=== PATIENT | female | born 1975 | race Caucasian/White ===

== ENCOUNTER 2019-08-10 13:31 | Outpatient (CLI) | payer BC, SELFPAY ==
--- NOTE | ~2019-08-10 | MR_ITS ---
EXAMINATION: MR abdomen wo/w con DATE: 08/10/2019 14:39 INDICATION: Liver mass. TECHNIQUE: Magnetic resonance imaging (MRI) of the abdomen was performed without and with 11 mL Multi Jenise intravenous contrast. Sequences included coronal T2-weighted FS FSE, coronal and axial FS FIEST A, axial T2-weighted FSE, coronal LAVA-flex, axial STIR FSE, axial DWI, axial dual-echo T1-weighted F SPGR, and axial LAVA. Postcontrast sequences included coronal LAVA-flex and a time course of axial LA VA. COMPARISON: CT abdomen and pelvis 06/25/2019 FINDINGS: There is a 5 mm cyst in the liver. In the left hepatic lobe, there is a 1.8 cm mass with interrupted peripheral puddling of contrast, consistent with a hemangioma. There is a 9 mm hyperenhancing mass in right hepatic lobe. There is a 6 mm hyperenhancing mass in right hepatic lobe. The gallbladder, sple en, pancreas, adrenal glands are normal. There are cysts in the kidneys measuring up to 4 mm. There a re no dilated loops of bowel. There are no pathologically enlarged lymph nodes. There is no free intr aperitoneal fluid. IMPRESSION: 1. 1.8 cm hemangioma in left hepatic lobe correlating with the CT finding. 2. 9 mm and 6 mm hyperenhancing liver masses. In the absence of known malignancy or chronic liver dis ease, these findings are likely hemangiomas or focal nodular hyperplasia. Reviewed, dictated and finalized at location A. [employer] IMPRESSION: 1. 1.8 cm hemangioma in left hepatic lobe correlating with the CT finding. 2. 9 mm and 6 mm hyperenhancing liver masses. In the absence of known malignanc y or chronic liver disease, these findings are likely hemangiomas or focal nodu lar hyperplasia.
[2019-08-10 14:10] LABS: Blood Urea Nitrogen 13 mg/dL (8-26); Estimated Glomerular Filt Rate > 60
== END 2019-08-10 13:32 | disposition home or self-care (01) ==
LOC: ANHIMG 13:42
PROVIDERS: PCP Family Medicine; Visit Provider Physician Assistant
DX: K76.9 Liver disease, unspecified (principal)
CPT/HCPCS: 74183; A9577

== ENCOUNTER 2024-03-23 11:53 | Emergency (ER) | payer BC, SELFPAY ==
[2024-03-23 11:55] VITALS: BP 135/73; PULSE 88; RESP 16; TEMP 36.4; O2SAT 100
[2024-03-23] MEDS: SODIUM CHLORIDE 0.9% IV 1,000 ML 999 ML IV CONT ×2 (13:00→14:26)
[2024-03-23] MEDS: PANTOPRAZOLE SODIUM IV 40 MG VIAL IV PUSH (13:00)
[2024-03-23] MEDS: ONDANSETRON INJ 4 MG/2 ML VIAL IV PUSH (13:00)
[2024-03-23 13:34] LABS: Basophils Percent Auto 0.2 % (0.2-1.2); Hematocrit 47.3 % (37.0-47.0); Hemoglobin 15.7 g/dL (12.0-15.0); Immature Granulocyte Absolute 0.04 K/mm3 (0.00-0.031); Immature Granulocyte Percent A 0.3 % (0-0.5); Lymphocytes Absolute Auto 0.45 K/mm3 (0.9-3.2); Lymphocytes Percent Auto 3.3 % (18.3-44.2); Mean Corpuscular HGB Conc 33.2 g/dl (32-36); Mean Corpuscular Hemoglobin 30.8 pg (26-34); Mean Corpuscular Volume 92.7 fl (80-100); Mean Platelet Volume 11.8 fl (7.4-10.4); Monocytes Absolute Auto 0.7 K/mm3 (0.1-0.6); Monocytes Percent Auto 4.9 % (2.6-8.5); Neutrophils Absolute Auto 12.6 K/mm3 (1.3-6.7); Neutrophils Percent Auto 91.3 % (45.5-73.1); Platelet Count Result 255 k/mm3 (150-375); Red Cell Distribution Width 12.4 % (11.5-14.5); White Blood Count 13.8 K/mm3 (4.5-10.0)
[2024-03-23 13:45] LABS: Lactic Acid Reflex 2.5 mmol/L (0.7-2.0)
[2024-03-23 13:47] LABS: Alanine Aminotransferase 28 U/L (6-35); Alkaline Phosphatase 51 U/L (38-126); Anion Gap 13 mmol/L (4-12); Aspartate Amino Transferase 34 U/L (14-36); Bilirubin,Total 0.7 mg/dL (0.2-1.3); Blood Urea Nitrogen 12 mg/dL (7-17); Calcium 10.7 mg/dL (8.4-10.2); Carbon Dioxide 29 mmol/L (22-30); Chloride 98 mmol/L (98-107); Estimated CRCL calculation 66 ml/min; Estimated Glomerular Filt Rate > 60; Glucose 141 mg/dL (65-110); Lipase 111 U/L (23-300); Potassium 3.4 mmol/L (3.4-5.0); Sodium 140 mmol/L (137-145)
--- NOTE | 2024-03-23 14:00 | ED.GENADULT ---
HPI - General Adult General Chief complaint: Nausea/Vomiting/Diarrhea Stated complaint: N/V/D Time Seen by Provider: 03/23/24 12:44 History of Present Illness HPI narrative: 48-year-old female presenting to the emergency department for evaluation of persistent nausea vomiting and epigastric pain. Patient reports that the symptoms started yesterday after having a particularly spicy meal that she may. Patient reports she did not eat very much to the due to his excessive spiciness. Patient reports that she had worsening nausea vomiting epigastric pain after eating the meal. Patient denies any lower abdominal pain. Related Data Allergies Allergy/AdvReac Type Severity Reaction Status Date / Time No Known Drug Allergies Allergy Verified 03/23/24 13:52 Review of Systems Review of Systems: All systems reviewed & are unremarkable except as noted in HPI and below PMFSH Past Medical History Medical History (Updated 03/23/24 @ 15:47 by Milad Montanez MD) Anemia Liver lesion Urolithiasis Surgical History Surgical History History of ureter stent Family History Family History (Updated 08/05/19 @ 10:05 by Sirisha Burciaga, PALayC) Father Acute myocardial infarction Heart disease Social History Social History Smoking status: Never smoker Exam Narrative: APPEARANCE: Well appearing, no pain, no distress, well-nourished. HEAD: normocephalic, atraumatic. EYES: PERRLA/EOMI, conjunctivae clear. NOSE: Normal no drainage EARS:TMS clear with good light reflex. THROAT: Pharynx clear, no exudate. NECK: Supple. No adenopathy, no masses. RESPIRATORY: Airway patent, respirations nonlabored. Clear to auscultation bilaterally, no rales, rhonchi, wheezing. CARDIOVASCULAR: Regular rate and rhythm without murmurs rubs or gallops. ABDOMINAL: Mild epigastric tenderness to palpation lower abdominal tenderness to palpation MUSCULOSKELETAL: Moves all extremities. Strength/ROM intact, No edema, No calf tenderness. NEURO: Alert. Cranial nerves II through XII intact. Good gait. Good coordination SKIN: Warm, dry. Normal Color Course Course Emergency Course: Patient felt improved treatment was discharged home. Vital Signs Vital signs: Vital Signs Temperature 97.6 F 03/23/24 11:55 Pulse Rate 88 03/23/24 11:55 Respiratory Rate 16 03/23/24 11:55 Blood Pressure 135/73 03/23/24 11:55 Pulse Oximetry 100 03/23/24 11:55 Oxygen Delivery Room Air 03/23/24 11:55 Temperature 97.6 F 03/23/24 11:55 Pulse Rate 65 03/23/24 14:30 Respiratory Rate 15 03/23/24 14:30 Blood Pressure 121/58 L 03/23/24 14:30 Pulse Oximetry 100 03/23/24 14:30 Oxygen Delivery Room Air 03/23/24 11:55 Medical Decision Making MDM Narrative Medical decision making narrative: 48-year-old female presented emergency department for evaluation for epigastric discomfort with associated nausea and vomiting. Patient states her symptoms were resolved with a GI cocktail. Patient is afebrile but does have a leukocytosis of 13.8. Hemoglobin is 15.7. Patient's lactic was elevated 2.5 but patient was treated with IV fluids. UA was negative for infection. On re-evaluation patient states the GI cocktail did resolve her symptoms. Patient was advised on dietary changes to avoid alcohol and NSAIDs to take Prilosec and to take Maalox as needed intermittently. Patient was encouraged close follow-up with GI. All questions concerns were addressed patient and family are comfortable the plan with discharge and close follow-up. Differential Diagnosis Differential Diagnosis: Gastritis, esophagitis, colitis, diverticulitis Vital Signs Vital Signs: Vital Signs Temperature 97.6 F 03/23/24 11:55 Pulse Rate 88 03/23/24 11:55 Respiratory Rate 16 03/23/24 11:55 Blood Pressure 135/73 03/23/24 11:55 Pulse Oximetry
[2024-03-23] MEDS: BELLADONNA ALK/PHENOB ELIX 10 ML, MAG HYDROX/ALUMINUM HYD/SIMETH 30 ML, LIDOCAINE HCL 2... PO (14:28)
[2024-03-23 14:30] VITALS: BP 121/58; PULSE 65; RESP 15; O2SAT 100
[2024-03-23 15:15] LABS: Add Urine Microscopic? YES; Appearance Urine Cloudy (Clear); Bacteria Urine None Seen /hpf; Bilirubin Urine Negative (Negative); Blood Urine Negative (Negative); Color Urine Yellow (Yellow); Glucose Urine UA Negative (Negative); Ketones Urine 3+ mg/dL (Negative); Leukocyte Esterase Ur Negative LEU/UL (Negative); Nitrate Urine Negative (Negative); Protein Urine 1+ mg/dL (Negative); RBC Urine 0-2 /hpf (0-2); Specific Grav Ur 1.019 (1.001-1.035); Squamous Epithelial Cell Urine Occasional /hpf (Few); Urobilinogen Urine 0.2 mg/dL (<2.0); WBC Urine 0-5 /hpf (0-3); pH Urine >=9.0 (5.0-9.0)
[2024-03-23 16:31] LABS: Reflex Lactic Acid Yes or No Add Lactic
== END 2024-03-23 16:15 | disposition home or self-care (01) ==
PROVIDERS: Emergency Provider Emergency Medicine; PCP Family Medicine
DX: K29.70 Gastritis, unspecified, without bleeding (principal); Z87.442 Personal history of urinary calculi; Z86.2 Personal history of diseases of the blood and blood-forming organs and certain disorders involving the immune mechanism
CPT/HCPCS: 36415; 80053; 81001; 83605; 83690; 85025; 96361; 96374; 96375; 99284; A9270; J2405; J2470; J7030